=== PATIENT | female | born 2000 | race American Indian/Alaskan Native ===

== ENCOUNTER 2021-11-24 00:51 | Emergency (ER) | payer SELFPAY ==
[2021-11-24 02:37] LABS: Alanine Aminotransferase 9 units/L (7-56); Albumin 4.6 g/dL (3.9-5); Blood Urea Nitrogen 9 mg/dL (7-17); Calcium 9.6 mg/dL (8.4-10.2); Hemolysis Index 35
[2021-11-24 02:38] LABS: BUN/Creatinine Ratio 13
[2021-11-24 02:58] LABS: Basophils # (Auto) 0.1 K/mm3 (0.0-0.1); Basophils % (Auto) 0.8 % (0.0-1.8); Eosinophils # (Auto) 0.2 K/mm3 (0.0-0.4); Eosinophils % (Auto) 2.4 % (0.0-4.3); Hematocrit 38.5 % (30.3-42.9); Hemoglobin 12.4 gm/dl (10.1-14.3); Lymphocytes # (Auto) 2.1 K/mm3 (1.2-5.4); Lymphocytes % (Auto) 32.7 % (13.4-35.0); Mean Corpuscular HGB Conc 32 % (30-34); Mean Corpuscular Volume 90 fl (79-97); Monocytes # (Auto) 0.7 K/mm3 (0.0-0.8); Monocytes % (Auto) 11.2 % (0.0-7.3); Platelet Count 312 K/mm3 (140-440); Red Cell Distribution Width 14.2 % (13.2-15.2)
--- NOTE | 2021-11-24 04:26 | Emergency Department Report ---
ED Syncope HPI - General Chief Complaint: Seizure Stated Complaint: STATUS EPILEPSY Time Seen by Provider: 11/24/21 04:16 - History of Present Illness Initial Comments: Patient is a 21-year-old female brought in by EMS. Patient states she was on her way home from work when she passed out. Bystanders reported seizure-like activity. Patient given 5 mg of Versed by EMS in route. She denies history of seizures. Her only complaint at this time is mild abdominal discomfort. - Related Data Allergies/Adverse Reactions: Allergies No Known Allergies Allergy (Unverified 11/24/21 01:56) ED Review of Systems ROS: Stated complaint: STATUS EPILEPSY Other details as noted in HPI Constitutional: denies: chills, fever Respiratory: denies: cough, shortness of breath, wheezing Cardiovascular: denies: chest pain, palpitations Gastrointestinal: denies: abdominal pain, nausea, diarrhea Genitourinary: denies: urgency, dysuria, discharge Musculoskeletal: denies: back pain, joint swelling, arthralgia Skin: denies: rash, lesions Neurological: denies: headache, weakness, numbness, paresthesias Psychiatric: denies: anxiety, depression ED Past Medical Hx - Past Medical History Previous Medical History?: No - Surgical History Past Surgical History?: No - Social History Smoking Status: Never Smoker Substance Use Type: Marijuana ED Physical Exam - General Limitations: No Limitations General appearance: alert, in no apparent distress - Head Head exam: Present: atraumatic, normocephalic - Eye Eye exam: Present: normal appearance, PERRL - Respiratory Respiratory exam: Present: normal lung sounds bilaterally. Absent: respiratory distress - Cardiovascular Cardiovascular Exam: Present: regular rate, normal rhythm, normal heart sounds - GI/Abdominal GI/Abdominal exam: Present: soft. Absent: distended, tenderness - Rectal Rectal exam: Present: deferred - Neurological Exam Neurological exam: Present: alert, oriented X3, CN II-XII intact - Psychiatric Psychiatric exam: Present: normal affect, normal mood - Skin Skin exam: Present: warm, dry, intact, normal color ED Course Vital Signs 11/24/21 11/24/21 00:52 01:59 Temperature 98 F 98.0 F Pulse Rate 82 68 Respiratory 18 15 Rate Blood Pressure 129/53 Blood Pressure 108/70 [Left] O2 Sat by Pulse 100 100 Oximetry ED Medical Decision Making - Lab Data Result diagrams: 11/24/21 02:07 11/24/21 02:07 - EKG Data -: EKG Interpreted by Me EKG shows normal: sinus rhythm, axis, intervals, QRS complexes, ST-T waves Rate: normal - Medical Decision Making EKG unremarkable. CBC and CMP are unremarkable. Physical exam is benign. Patient is ambulatory without assistance. She denies headache or any focal neurodeficits. New onset seizure unlikely. Differential diagnosis includes but not limited to orthostatic syncope, vasovagal syncope. Patient stable for discharge home with return precautions. Critical care attestation.: If time is entered above; I have spent that time in minutes in the direct care of this critically ill patient, excluding procedure time. ED Disposition Clinical Impression: Syncope Disposition: 01 HOME / SELF CARE / HOMELESS Is pt being admited?: No Condition: Stable Instructions: Syncope (ED), Syncope, [id number] Additional Instructions: Please follow-up with your regular doctor at your earliest convenience. You may return if your symptoms worsen. Time of Disposition: 04:28
[2021-11-24 05:31] VITALS: BP 110/72
--- NOTE | 2021-11-26 16:46 | Electrocardiograph Report ---
[facility] Test Date: 2021-11-24 Test Time: 01:48:36 Pat Name: LEE LOPEZ Department: Room: Gender: F Management Nurse Rn: : [id number] Requested By: OLGA JOLLEY Order Number: [id number] Reading MD: Todd Man Measurements Intervals [place] Rate: 64 P: 36 TX: 131 QRS: 55 QRSD: 71 T: 46 QT: 406 QTc: 420 Interpretive Statements Sinus rhythm No previous ECG available for comparison Electronically Signed On 11-26-2021 16:46:38 EDT by Todd Man
== END 2021-11-24 05:30 | disposition home or self-care (01) ==
LOC: ED 00:51
DX: R55 Syncope and collapse (principal); F12.90 Cannabis use, unspecified, uncomplicated; Z79.899 Other long term (current) drug therapy
CPT/HCPCS: 36415; 80053; 84703; 85025; 93005; 99284